=== PATIENT | female | born 1990 | race Caucasian/White ===

== ENCOUNTER → 2017-02-19 | Outpatient (CLI) | payer OTHER | LOC: HPND 09:51 | PROVIDERS: ATTEND Obstetrics & Gynecology | DX: Z36 Encounter for antenatal screening of mother (principal); O99.211 Obesity complicating pregnancy, first trimester; Z68.36 Body mass index [BMI] 36.0-36.9, adult; Z3A.12 12 weeks gestation of pregnancy | CPT/HCPCS: 36416; 76813 ==

== ENCOUNTER 2017-05-18 18:29 | Emergency (ER) | payer OTHER ==
--- NOTE | 2017-05-18 19:26 | PD ---
HPI Chief Complaint Vaginal bleeding Date Seen: May 18, 2017 Travel History International Travel<30 Days: No Contact w/Intl Traveler<30Days: No Known Affected Area: No History of Present Illness HPI Patient is 26-year-old white female at [address] Irineo denson. She complains of red vaginal bleeding noted today for the first time in this . She's had no pain leakage of fluid or other complication, baby is moving. heart rate is within normal limits for 25 weeks and she is no contractions. Para: 0 : 1 History Social History Alcohol Use: No Tobacco Use: No Substance Abuse: No Review of Systems General / Constitutional: No: Fever, Weight Gain, Chills, Other Eyes: No: Diploplia, Blurred Vision, Visual changes, Pain, Photophobia HENT: No: Headaches, Vertigo, Lightheadedness Cardiovascular: No: Irregular Rhythm, Chest Pain or Discomfort, Palpitations, Tachycardia, Syncope, Varicosities, Edema, Cyanosis Respiratory: No: Cough, Short of Breath, Other Gastrointestinal: No: Nausea, Vomiting, Diarrhea Genitourinary: Vaginal Bleeding, No: Decreased Urinary Output, Oliguria Musculoskeletal: No: Limited ROM, Weakness, Cramping, Edema, Pain Skin: No Rash, No Itching, No Dryness, No Lumps, No Change in Pigmentation, No Change in Nails, No Alopecia, No Lesions Neurologic: No: Weakness, Dizziness, Syncope, Focal Abnormalities, Coordination Problem, Headache, Slurred Speech, Seizures Psychiatric: No: Depression, Suicidal Ideations, Homicidal Ideation Endocrine: No: Heat Intolerance, Cold Intolerance, Polydipsia, Polyuria, Other Physical Exam Narrative GENERAL: Well-nourished, well-developed patient. SKIN: Warm and dry. HEAD: Normocephalic and atraumatic. EYES: No scleral icterus. No injection or drainage. ENT: No nasal drainage noted. Mucous membranes pink. Airway patent. NECK: Supple, trachea midline. No JVD. CARDIOVASCULAR: Regular rate and rhythm without murmurs, gallops, or rubs. RESPIRATORY: Breath sounds equal bilaterally. No accessory muscle use. BREASTS: Bilateral exam showed no masses , no retractions, no nipple discharge. ABDOMEN/GI: Abdomen soft, non-tender, bowel sounds present, no rebound, no guarding Gravid to [-25] weeks size Fundal Height: [25-] GENITOURINARY: External Genitalia: intact and normal in appearance Speculum exam done is no blood in the vagina, cervix appears normal is no infection discharge or bleeding spots in the cervix Cervix: [-Closed] Dilatation: [-] Closed Effacement: [-] Thick Station: [-3] Presentation: [breech] Membranes: [intact ] Uterine Contractions: [-none] FHT's: Category: [1-] Baseline: [-133] Reactive: [yes-] Variability: [-mod] Decels: [-] EXTREMITIES: No cyanosis or edema. BACK: Nontender without obvious deformity. No CVA tenderness. NEUROLOGICAL: Awake and alert. Motor and sensory grossly within normal limits. Five out of 5 muscle strength in all muscle groups. Normal speech. Data Data Labs Bedside ultrasound done shows of 25 week intrauterine and a breech and at times transverse lie, size equal dates, placenta is anterior there is no previa, amniotic fluid within normal limits MDM Interpretation(s) Patient is 26-year-old white female at 25 weeks with a red vaginal bleeding noted today at home which went to the bathroom it was of small amount of blood but was read and noted on the toilet paper and in the toilet bowl. todays exam no blood seen in the vagina and ultrasound is anterior placenta Plan Planned for her to be at pelvic rest home rest and follow-up with Dr. denson. She is return for any increase in bleeding or other problems. Diagnosis Diagnosis: Primary Impression: Spotting complicating in second trimester Disposition: 01 DISCHARGE HOME Condition: Stable Bethel Ivan II, MD May 18, 2017 19:26 Bethel Ivan II, MD May 18, 2017 19:26
== END 2017-05-18 19:39 | disposition home or self-care (01) ==
LOC: HOBED 18:29
DX: O26.852 Spotting complicating pregnancy, second trimester (principal); Z3A.25 25 weeks gestation of pregnancy
CPT/HCPCS: 76815

== ENCOUNTER 2017-08-08 23:40 | Emergency (ER) | payer OTHER ==
--- NOTE | 2017-08-09 00:24 | PD ---
HPI Chief Complaint Decreased movement Date Seen: Aug 09, 2017 Time Seen: 00:20 Travel History International Travel<30 Days: No Contact w/Intl Traveler<30Days: No Known Affected Area: No History of Present Illness HPI Patient is 26-year-old white female at [address] denson presents complaining of decreased movement today. She tried to eat food and drinks March use it didn't help baby still was moving some she became nervous and came to the hospital. Her NST tonight is reactive with adequate accelerations and good variability. No regular contractions seen. And since being here on OB ED she has felt the baby' roll 'some on the inside Weeks Gestation: 37 Para: 0 : 1 History Social History Alcohol Use: No Tobacco Use: No Substance Abuse: No Review of Systems General / Constitutional: No: Fever, Weight Gain, Chills, Other Eyes: No: Diploplia, Blurred Vision, Visual changes, Pain, Photophobia HENT: No: Headaches, Vertigo, Lightheadedness Cardiovascular: No: Irregular Rhythm, Chest Pain or Discomfort, Palpitations, Tachycardia, Syncope, Varicosities, Edema, Cyanosis Respiratory: No: Cough, Short of Breath, Other Gastrointestinal: No: Nausea, Vomiting, Diarrhea Genitourinary: No: Decreased Urinary Output, Oliguria Musculoskeletal: No: Limited ROM, Weakness, Cramping, Edema, Pain Skin: No Rash, No Itching, No Dryness, No Lumps, No Change in Pigmentation, No Change in Nails, No Alopecia, No Lesions Neurologic: No: Weakness, Dizziness, Syncope, Focal Abnormalities, Coordination Problem, Headache, Slurred Speech, Seizures Psychiatric: No: Depression, Suicidal Ideations, Homicidal Ideation Endocrine: No: Heat Intolerance, Cold Intolerance, Polydipsia, Polyuria, Other Physical Exam Narrative GENERAL: Well-nourished, well-developed patient. SKIN: Warm and dry. HEAD: Normocephalic and atraumatic. EYES: No scleral icterus. No injection or drainage. ENT: No nasal drainage noted. Mucous membranes pink. Airway patent. NECK: Supple, trachea midline. No JVD. CARDIOVASCULAR: Regular rate and rhythm without murmurs, gallops, or rubs. RESPIRATORY: Breath sounds equal bilaterally. No accessory muscle use. BREASTS: Bilateral exam showed no masses , no retractions, no nipple discharge. ABDOMEN/GI: Abdomen soft, non-tender, bowel sounds present, no rebound, no guarding Gravid to [-37] weeks size Fundal Height: [-37] GENITOURINARY: External Genitalia: intact and normal in appearance Membranes: [intact ] Uterine Contractions: [none-] FHT's: Category: [-1] Baseline: [-133] Reactive: [-yes] Variability: [mod-] Decels: [none-] EXTREMITIES: No cyanosis or edema. BACK: Nontender without obvious deformity. No CVA tenderness. NEUROLOGICAL: Awake and alert. Motor and sensory grossly within normal limits. Five out of 5 muscle strength in all muscle groups. Normal speech. MDM Interpretation(s) The patient is 26-year-old white female at 37 weeks who presents with decreased movement today. Here on OB ED the patient is reactive NST with good variability. She is feeling the baby move since she's been here. heart rate tracing is reactive and there are no regular contractions Plan patient be discharged home to do kick counts she was given printed instruction as well as nursing instruction. She will follow-up with Dr. Kraus on Saturday which is 4 days from now Diagnosis Diagnosis: Primary Impression: Decreased movement affecting management of in third trimester Disposition: DISCHARGE HOME Condition: Stable Bethel Ivan II, MD Aug 09, 2017 00:24
== END 2017-08-09 00:43 | disposition home or self-care (01) ==
LOC: HOBED 23:40
DX: O36.8130 Decreased fetal movements, third trimester, not applicable or unspecified (principal); Z3A.37 37 weeks gestation of pregnancy
CPT/HCPCS: 59025

== ENCOUNTER 2017-08-24 10:51 | Emergency (ER) | payer OTHER ==
--- NOTE | 2017-08-24 11:54 | PD ---
HPI Chief Complaint Possibly leaking fluid Date Seen: Aug 24, 2017 Time Seen: 11:45 Travel History International Travel<30 Days: No Contact w/Intl Traveler<30Days: No Known Affected Area: No History of Present Illness HPI Patient is 26-year-old white female patient of Dr. Zapata who is at 39 weeks presents complaining of leakage of fluid, no bleeding, no pain or contractions noted. heart rate tracing is reactive here her amnio sure is negative. She is having small frequent contractions that she doesn't even feel Weeks Gestation: 39 Para: 0 : 1 Last Menstrual Period: Aug 24, 2017 History Social History Alcohol Use: No Tobacco Use: No Substance Abuse: No Review of Systems General / Constitutional: No: Fever, Weight Gain, Chills, Other Eyes: No: Diploplia, Blurred Vision, Visual changes, Pain, Photophobia HENT: No: Headaches, Vertigo, Lightheadedness Cardiovascular: No: Irregular Rhythm, Chest Pain or Discomfort, Palpitations, Tachycardia, Syncope, Varicosities, Edema, Cyanosis Respiratory: No: Cough, Short of Breath, Other Gastrointestinal: No: Nausea, Vomiting, Diarrhea Genitourinary: No: Decreased Urinary Output, Oliguria Musculoskeletal: No: Limited ROM, Weakness, Cramping, Edema, Pain Skin: No Rash, No Itching, No Dryness, No Lumps, No Change in Pigmentation, No Change in Nails, No Alopecia, No Lesions Neurologic: No: Weakness, Dizziness, Syncope, Focal Abnormalities, Coordination Problem, Headache, Slurred Speech, Seizures Psychiatric: No: Depression, Suicidal Ideations, Homicidal Ideation Endocrine: No: Heat Intolerance, Cold Intolerance, Polydipsia, Polyuria, Other Physical Exam Narrative GENERAL: Well-nourished, well-developed, obese patient. SKIN: Warm and dry. HEAD: Normocephalic and atraumatic. EYES: No scleral icterus. No injection or drainage. ENT: No nasal drainage noted. Mucous membranes pink. Airway patent. NECK: Supple, trachea midline. No JVD. CARDIOVASCULAR: Regular rate and rhythm without murmurs, gallops, or rubs. RESPIRATORY: Breath sounds equal bilaterally. No accessory muscle use. BREASTS: Bilateral exam showed no masses , no retractions, no nipple discharge. ABDOMEN/GI: Abdomen soft, non-tender, bowel sounds present, no rebound, no guarding Gravid to [-39] weeks size Fundal Height: [39-] GENITOURINARY: External Genitalia: intact and normal in appearance BUS glands: [-] Cervix: [-post] Dilatation: [-0] Effacement: [0-] Station: [-3] Presentation: [-vtx] Membranes: [intact ]amnisure neg Uterine Contractions: [+ small frequent CTXs not felt-] FHT's: Category: [-1] Baseline: [133-] Reactive: [yes-] Variability: [mod-] Decels: [0-] EXTREMITIES: No cyanosis or edema. BACK: Nontender without obvious deformity. No CVA tenderness. NEUROLOGICAL: Awake and alert. Motor and sensory grossly within normal limits. Five out of 5 muscle strength in all muscle groups. Normal speech. Data Data Labs amnisure neg MDM Interpretation(s) Patient 26-year-old white female at [address] zapata for care presents complaining of leakage of fluid per vagina. No bleeding, small contractions are seen but not felt. Cervix is closed and high. Amnio sure is negative this morning. heart rate tracing is reactive Plan Plan to discharge patient home for follow-up with her OB provider or return here sooner for symptoms Diagnosis Diagnosis: Primary Impression: No leakage of amniotic fluid into vagina Additional Impression: 39 weeks gestation of Disposition: 01 DISCHARGE HOME Condition: Stable Bethel Ivan II, MD Aug 24, 2017 11:54
== END 2017-08-24 12:34 | disposition home or self-care (01) ==
LOC: HOBED 10:51
DX: Z03.71 Encounter for suspected problem with amniotic cavity and membrane ruled out (principal); O62.9 Abnormality of forces of labor, unspecified; Z3A.39 39 weeks gestation of pregnancy
CPT/HCPCS: 84112; 99283

== ENCOUNTER 2017-08-27 10:17 | Inpatient (IN) | payer OTHER ==
[2017-08-27] VITALS (7 sets, daily range): BP systolic 95–111; BP diastolic 49–70; PULSE 71–85; RESP 18; TEMP 97.5–97.6; O2SAT 99–100
[~2017-08-27] VITALS: Ht 162.6 cm; Wt 122.0 kg
--- NOTE | 2017-08-27 09:34 | MH ---
cc: RADHA BENJAMIN DATE OF ADMISSION: 08/27/2017 DATE OF : 1990 ADMITTING DIAGNOSIS Term with fecal macrosomia. HISTORY OF PRESENT ILLNESS The patient is a 26-year-old, white female with an EDC of 08/31/2017 by dates, 08/28/2017 by early ultrasound. Her course has been benign. Ultrasound on 08/26/2017 is consistent with macrosomia with an EFW of 4400 grams. She is now admitted for a scheduled . PAST MEDICAL HISTORY PREVIOUS SURGERY 1. Umbilical hernia repair in 2013. 2. Arthroscopy of the left knee in 2012 and again in 2013. ALLERGIES CECLOR. TRANSFUSIONS None. SOCIAL HISTORY She is . She is a teacher. Alcohol, tobacco and drugs are none. FAMILY HISTORY Noncontributory. PHYSICAL EXAMINATION GENERAL: A gravid white female in no distress. Weight is 276 pounds, height 5 feet 4 inches. HEENT: Normal. CHEST: Clear. HEART: Regular rate. BREASTS: Symmetrical. ABDOMEN: Gravid. EFW of 4400 grams. PELVIC: Cervix is long, thick and closed. Vertex is ballotable. ASSESSMENT As above. PLAN She is now admitted for a primary . While in the office I explained the procedures, the risks, benefits and complications and she elected to proceed. I explained that the baby's EFW can be plus or minus 10%. Due to the large estimated size and the high vertex would recommend elective section. The patient elected to proceed. MD MEI Donaldson/LUKE /8:44 AM /9:20 AM
[2017-08-27] MEDS ORDERED: PREN29TA PO ×2 (11:24)
[2017-08-27] MEDS ORDERED: FERR325C PO ×2 (11:24)
[2017-08-27] MEDS ORDERED: LACTATED RINGER'S 1000 ML IV ONE (11:30)
[2017-08-27 11:39] LABS: AUTOMATED NEUTROPHIL # 8.7 TH/MM3 (1.8-7.7); BACTERIA, URINE RARE /hpf; BASOPHIL % 0.4 % (0.0-2.0); BLOOD, URINE SMALL (NEG); EOSINOPHIL # 0.1 TH/MM3 (0-0.4); GLUCOSE,URINE NEG (NEG); HEMATOCRIT 40.7 % (35.0-46.0); HEMO FLAGS DIFF FINAL; KETONE, URINE NEG (NEG); LYMPH % 20.3 % (9.0-44.0); LYMPHOCYTE # 2.5 TH/MM3 (1.0-4.8); MEAN CELL VOLUME 89.3 FL (80.0-100.0); MEAN CORPUSCULAR HEMOGLOBIN 29.4 PG (27.0-34.0); MONO % 6.3 % (0.0-8.0); MUCUS URINE FEW /lpf (OCC); NITRITE,URINE NEG (NEG); PH, URINE 6.5 (5.0-8.5); PLATELET COUNT 299 TH/MM3 (150-450); RED BLOOD COUNT 4.55 MIL/MM3 (4.00-5.30); RED CELL DISTRIBUTION WIDTH 17.7 % (11.6-17.2); SQUAMOUS EPITHELIAL CELL URINE 2 /hpf (0-5); URINE COLOR YELLOW (YELLW/STRAW); WHITE BLOOD COUNT 12.1 TH/MM3 (4.0-11.0)
[2017-08-27 11:41] LABS: COMMENT (UR) CULT NOT INDICATED; CULTURE IF INDICATED CULT NOT INDICATED
[2017-08-27] MEDS ORDERED: CITRIC ACID-SODIUM CITRATE LIQ 30 ML UDC PO SCH (11:45)
[2017-08-27] MEDS ORDERED: ceFAZolin 2 GM PREMIX 50 ML IV SCH (11:45)
[2017-08-27] MEDS ORDERED: OXYTOCIN 10 UNIT/ML AMP IV ONE (12:00)
[2017-08-27] MEDS ORDERED: ONDANSETRON HCL 4 MG/2 ML VIAL IV PUSH ONE (12:00)
[2017-08-27] MEDS ORDERED: LACTATED RINGER'S 1000 ML INJ 2,000 ML IV ONE (12:00)
[2017-08-27] MEDS ORDERED: ePHEDrine/NS 25 MG/5 ML SYR IV ONE (12:00)
[2017-08-27] MEDS ORDERED: MORPHINE SULFATE PF 5 MG/10 ML VIAL EPIDURAL ONE (12:00)
[2017-08-27] MEDS ORDERED: LACTATED RINGER'S 1000 ML IV SCH (12:00)
[2017-08-27] MEDS ORDERED: PHENYLEPH/NS 1000 MCG/10 ML SYR IV ONE (12:00)
[2017-08-27] MEDS ORDERED: ACETAMINOPHEN 1000 MG/100 ML 100 ML IV ONE (12:12)
[2017-08-27] MEDS ORDERED: LACTATED RINGER'S 1000 ML INJ 1,000 ML IV SCH (13:04)
[2017-08-27] MEDS ORDERED: OXYTOCIN 30 UNITS-500ML PREMIX 500 ML IV ONE (13:15)
[2017-08-27] MEDS ORDERED: KETOROLAC TROMETHAMINE 30 MG/ML (IVP) VIAL IV PUSH PRN (13:15)
[2017-08-27] MEDS ORDERED: DOCUSATE SODIUM 50 MG/SENNA 8.6 MG TAB PO PRN (13:15)
[2017-08-27] MEDS ORDERED: ONDANSETRON HCL 4 MG/2 ML VIAL IVP PRN (13:15)
[2017-08-27] MEDS ORDERED: SODIUM CHLORIDE 0.9% FLUSH 5 ML FLUSH IV PRN (13:15)
[2017-08-27] MEDS ORDERED: ZOLPIDEM TARTRATE 5 MG TAB PO PRN (13:15)
[2017-08-27] MEDS ORDERED: oxyCODONE/ACETAMINOPHEN 5 MG/325 MG TAB PO PRN ×2 (13:15)
[2017-08-27] MEDS ORDERED: MEASLES, MUMPS, RUBELLA VACCINE 0.5 ML VIAL SQ ONE (13:15)
[2017-08-27] MEDS ORDERED: KETOROLAC TROMETHAMINE 60 MG/2 ML (IM) VIAL IM PRN (13:15)
[2017-08-27] MEDS ORDERED: OXYTOCIN 30 UNITS-500ML PREMIX 500 ML IV PRN (18:15)
[2017-08-27] MEDS: ACETAMINOPHEN 1000 MG/100 ML VIAL IV SCH (20:03)
[2017-08-28 00:25] VITALS: BP 102/66; PULSE 92; RESP 17; TEMP 97.9; O2SAT 97
[2017-08-28] MEDS: ACETAMINOPHEN 1000 MG/100 ML VIAL IV SCH (04:00)
[2017-08-28 04:14] VITALS: RESP 16
[2017-08-28 06:57] LABS: BASOPHIL # 0.1 TH/MM3 (0-0.2); BASOPHIL % 0.5 % (0.0-2.0); EOSINOPHIL # 0.2 TH/MM3 (0-0.4); EOSINOPHIL % 1.1 % (0.0-4.0); HEMATOCRIT 36.1 % (35.0-46.0); HEMO FLAGS DIFF FINAL; LYMPH % 16.1 % (9.0-44.0); LYMPHOCYTE # 2.3 TH/MM3 (1.0-4.8); MEAN CELL VOLUME 89.2 FL (80.0-100.0); MEAN CORPUSCULAR HEMOGLOBIN 29.5 PG (27.0-34.0); MEAN CORPUSCULAR HGB CONC 33.1 % (32.0-36.0); MONO % 5.8 % (0.0-8.0); NEUT % 76.5 % (16.0-70.0); PLATELET COUNT 225 TH/MM3 (150-450); RED BLOOD COUNT 4.05 MIL/MM3 (4.00-5.30); WHITE BLOOD COUNT 14.3 TH/MM3 (4.0-11.0)
--- NOTE | 2017-08-28 07:27 | MP ---
cc: RADHA BENJAMIN DATE OF SURGERY 08/27/2017 PREOPERATIVE DIAGNOSES 1. Term 2. macrosomia. POSTOPERATIVE DIAGNOSES 1. Term 2. macrosomia. PROCEDURE Primary low transverse section. ANESTHESIA Spinal. SURGEON Radha Benjamin MD HEARING CARE PRACTITIONER DMITRIY Pham ESTIMATED BLOOD LOSS About 600 cc. FLUIDS 2.1 liters crystalloid. OBJECTIVE FINDINGS Following the induction of adequate spinal anesthesia, the patient was prepped and draped supine on the operating table in the left lateral tilt position in the usual sterile fashion with the bladder being drained via Weber catheterization. The abdomen was opened through a Pfannenstiel incision using a knife to cut down through the skin to the fascia. The fascia was opened transversely, stripped from the muscles, the rectus muscle split in the midline and the peritoneum opened sharply without incident. The bladder flap was taken down sharply and retracted inferiorly with a Sullivan blade. The lower uterine segment was incised transversely with a knife, extended with blunt dissection, membranes ruptured revealing clear fluid. The baby was in the LOT position. The vacuum extractor was applied to the occiput and used to gently lift the head through the abdominal wound. The mouth was suctioned, nuchal cord x 2 reduced, the cord clamped and cut and the baby passed to the awaiting team, a viable, vigorous male. Apgars were 8 and 8, weight 9 pounds, 2 ounces. Cord blood was collected for typing. The placenta was manually removed and the uterine cavity cleaned with laps. The uterus was exteriorized and closed in two layers of running suture, the first with a running locking stitch of 0 Vicryl and the second with a running imbricating stitch of 0 Vicryl. Posterior inspection revealed the uterus, tubes and ovaries were normal. The uterus was replaced in the abdominal cavity, irrigation performed. No bleeding was evident so the bladder flap was closed with a running stitch of 0 Vicryl. All laps and retractors were removed, counts were correct. The anterior peritoneum was closed with a running stitch of 2-0 Vicryl, the fascia closed with a running locking stitch of 0 Vicryl from corner to midline and tied, the subcu was closed with running 3-0 Vicryl and the skin with a running subcuticular 3-0 Monocryl. Dermabond applied. All counts were correct and the patient was awakened and taken to the recovery room in good condition. MD MEI Donaldson/SSB /6:37 AM /7:05 AM
[2017-08-28 07:40] LABS: BICARBONATE 25.3 MEQ/L (21.0-32.0)
[2017-08-28 07:46] LABS: POTASSIUM 4.2 MEQ/L (3.5-5.1)
[2017-08-28] MEDS: IBUPROFEN 600 MG TAB PO PRN ×2 (08:32→14:35)
[2017-08-28 10:00] VITALS: RESP 16; TEMP 98.2
[2017-08-28] MEDS ORDERED: INFLUENZA VIRUS VACCINE (QUADRIVALENT) 0.5 ML SYR IM ONE (10:00)
[2017-08-28] MEDS: SIMETHICONE 80 MG CHEWABLE TAB PO PRN (15:49)
[2017-08-28] MEDS: traMADol HCL 50 MG TAB PO PRN (15:49)
[2017-08-28 16:00] VITALS: BP 104/74; PULSE 80; RESP 18; TEMP 98.4
[2017-08-28] MEDS: ACETAMINOPHEN 1000 MG/100 ML 100 ML IV SCH (19:40)
[2017-08-28 20:00] VITALS: BP 113/67; PULSE 93; RESP 20; TEMP 98.4
[2017-08-28] MEDS: KETOROLAC TROMETHAMINE 30 MG/ML (IVP) VIAL IV PUSH SCH (20:16)
[2017-08-29] MEDS: ACETAMINOPHEN 1000 MG/100 ML 100 ML IV SCH ×4 (00:44→18:22)
[2017-08-29] MEDS: KETOROLAC TROMETHAMINE 30 MG/ML (IVP) VIAL IV PUSH SCH ×3 (01:30→13:33)
[2017-08-29] MEDS ORDERED: DIPHTH/TETANUS/ACEL PERTUSSIS (BOOSTER) 0.5 ML VIAL/PFS IM ONE (09:00)
[2017-08-29] MEDS: SODIUM CHLORIDE 0.9% FLUSH 5 ML FLUSH IV SCH (09:00)
[2017-08-29] MEDS: IBUPROFEN 600 MG TAB PO PRN (18:20)
[2017-08-29] MEDS: SIMETHICONE 80 MG CHEWABLE TAB PO PRN ×2 (18:22→23:30)
[2017-08-29 19:50] VITALS: BP 118/60; PULSE 93; RESP 20; TEMP 98.2
[2017-08-29] MEDS: traMADol HCL 50 MG TAB PO PRN (23:38)
[2017-08-30] MEDS: IBUPROFEN 600 MG TAB PO PRN ×2 (00:42→08:10)
[2017-08-30] MEDS: traMADol HCL 50 MG TAB PO PRN ×2 (05:11→12:00)
[2017-08-30] MEDS: ACETAMINOPHEN 1000 MG/100 ML 100 ML IV SCH ×2 (06:30→09:52)
--- NOTE | 2017-08-30 06:35 | HHI.DCPOC ---
Discharge Care Plan Report Symptoms to Your Doctor -Temperature above 100.5 degrees -Redness, of incision or excessive or foul smelling drainage -Unusual pain or calf pain -Increased vaginal bleeding -Painful or difficulty urinating -Feelings of extreme sadness or anxiety after 2 weeks Goals to Promote Your Health * To prevent worsening of your condition and complications * To maintain your health at the optimal level Directions to Meet Your Goals Take your medications as prescribed Follow your dietary instruction Follow activity as directed Ensure plenty of rest for recovery Drink fluids for hydration Keep your appointments as scheduled Take your immunizations and boosters as scheduled If your symptoms worsen call your PCP, if no PCP go to Urgent Care Center or Emergency Room Smoking is Dangerous to Your Health. Avoid second hand smoke Call the 24-hour crisis hotline for domestic abuse at Irineo Zapata MD Aug 30, 2017 06:35
[2017-08-30] MEDS: KETOROLAC TROMETHAMINE 30 MG/ML (IVP) VIAL IV PUSH SCH (07:22)
[2017-08-30 07:40] VITALS: BP 140/71; PULSE 87; RESP 18; TEMP 98.2
[2017-08-30] MEDS: SODIUM CHLORIDE 0.9% FLUSH 5 ML FLUSH IV SCH (08:08)
[2017-08-30] MEDS ORDERED: REGL10TA5 PO ×4 (09:29→09:31)
[2017-08-30] MEDS ORDERED: TRAM50TA PO ×4 (09:30→09:31)
--- NOTE | 2017-08-31 21:55 | MD ---
cc: RADHA BENJAMIN ADMISSION DATE: 08/27/2017 DISCHARGE DATE: 08/30/2017 ADMISSION DIAGNOSIS 1. Term 2. macrosomia. DISCHARGE DIAGNOSIS 1. Term 2. macrosomia. 3. Delivered HISTORY OF PRESENT ILLNESS A 26-year-old white female para 0 with EDC of 08/28/2017 by early ultrasound. Her preop course was benign. Ultrasound at term revealed EFW of 4400 grams with a high vertex. Delivery by was recommended. She was admitted on 08/27/2017, had a primary low transverse section with delivery of viable vigorous female, Apgars eight and eight, weight 9 pounds 2 ounces, nuchal cord x2. did well, discharged home in excellent condition on 08/30/2017. Her pre and postop labs were normal. She was advised NPV, light activity, noand driving and carefully instructed in care. She was given prescriptions for tramadol 50 mg p.o. q.6 h p.r.n. pain #50 and Reglan 10 mg p.o. t.i.d. #30 to try and enhance her milk production and let down. She will take vitamin pills at home. She will return to see me in 1 week. She was carefully instructed in postop wound instruction and care. MD MEI Donaldson/ /6:37 AM /9:41 PM
== END 2017-08-30 13:59 | disposition home or self-care (01) | DRG 766 ==
LOC: H2EB 10:17 → H1EA 14:36
PROVIDERS: ADMIT Obstetrics & Gynecology; ATTEND Obstetrics & Gynecology
PROC: 10D00Z1 Extraction of Products of Conception, Low, Open Approach (ICD-10-PCS; principal; 2017-08-27)
DX: O36.63X0 Maternal care for excessive fetal growth, third trimester, not applicable or unspecified (principal); O69.81X0 Labor and delivery complicated by cord around neck, without compression, not applicable or unspecified; Z37.0 Single live birth; Z3A.39 39 weeks gestation of pregnancy
CPT/HCPCS: 59025; 80048; 80307; 81001; 85025; 86850; 86900; 86901; 90686; 90707; 90715; J0131; J0690; J1885; J2274; J2370; J2405; J2590; J7120; Q2038